=== PATIENT | female | born 1940 | race Caucasian/White ===

== ENCOUNTER 2023-12-13 22:16 | Emergency (ER) | payer MEDICARE, OTHER ==
[~2023-12-13] VITALS: Ht 162.6 cm; Wt 57.4 kg
--- OUTSIDE RECORDS SUMMARY | 2023-12-13 22:18 | XMS ---
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 [place] VISIT COUNT (12 MO.) 1 [facility] 1 [facility] TOTAL 3 NOTE: Visits indicate total known visits. ED/UCC VISIT TRACKING (12 MO.) 12/13/2023 22:17 [facility] [place] TYPE: Emergency COMPLAINT: - FALL 09/22/2023 17:52 [facility] TYPE: Emergency DIAGNOSES: - Rectal prolapse - prolapsed bowel problem - Rectal Problems 01/01/2023 09:17 [facility] ([facility]) TYPE: Emergency DIAGNOSES: - Disorientation, unspecified - Altered Mental Status - AMS, ankle swelling INPATIENT VISIT TRACKING (12 MO.) No inpatient visits to display in this time frame [email or web address]
[2023-12-13] MEDS ORDERED: ondansetron HCL 4 MG/2 ML VIAL IV ONE (22:30)
[2023-12-13] MEDS ORDERED: MORPHINE SULFATE 4 MG/ML VIAL IV ONE (22:30)
[2023-12-13 22:39] LABS: BASOPHILS 0.7 % (0-2); EOSINOPHILS 2.4 % (0-6); HEMOGLOBIN 12.9 g/dL (12.0-18.0); LYMPHOCYTES 25.7 % (24-44); MCHC 33.1 g/dl (30-36); MCV 93.6 fl (81-99); MONOCYTES 8.1 % (0-12); NEUTROPHILS 63.1 % (39-80); PLATELET COUNT 173 K/uL (140-440); RBC 4.17 M/ul (4.3-5.7); RDW 13.3 (10.5-15.0)
[2023-12-13 22:51] LABS: ALBUMIN 3.7 g/dL (3.4-5.0); ALBUMIN/GLOBULIN RATIO 1.12 (1.1-2.4); ALCOHOL, MEDICAL <3 ng/dL (<3); ALKALINE PHOSPHATASE 90 U/L (46-116); ALT (SGPT) 18 U/L (14-59); ANION GAP 11.1 (7-21); AST (SGOT) 13 U/L (15-37); BILIRUBIN, TOTAL 0.4 ng/dL (0.2-1.0); BUN/CREATININE RATIO 23.07 (6.0-28.6); CALCIUM 8.6 mg/dL (8.5-10.1); CARBON DIOXIDE 29 mmol/L (21-32); CHLORIDE 99 mmol/L (98-107); CREATININE, SERUM 0.78 mg/dL (0.55-1.02); GLOMERULAR FILTRATION RATE,EST 76 mL/min (>60); POTASSIUM 4.1 mmol/L (3.5-5.1); UREA NITROGEN 18 mg/dL (7-18)
[2023-12-13 23:11] LABS: ABO A; ANTIBODY SCREEN NEGATIVE; RH POSITIVE
[2023-12-13 23:20] LABS: BILIRUBIN, URINE NEGATIVE (negative); BLOOD/HGB, URINE NEGATIVE (Negative); KETONE, URINE NEGATIVE (Negative); LEUK ESTERASE, URINE NEGATIVE (negative); NITRITE, URINE NEGATIVE (negative)
[2023-12-13 23:35] LABS: AMPHETAMINES, URINE NEGATIVE (NEGATIVE); BARBITURATES, URINE NEGATIVE (NEGATIVE); BENZODIAZEPINE, URINE NEGATIVE (NEGATIVE); BUPRENORPHINE, URINE NEGATIVE (NEGATIVE); CANNABINOID, URINE NEGATIVE (NEGATIVE); COCAINE, URINE NEGATIVE (NEGATIVE); ECSTASY, URINE NEGATIVE (NEGATIVE); FENTANYL, URINE NEGATIVE (NEGATIVE); METHADONE, URINE NEGATIVE (NEGATIVE); OPIATES, URINE POSITIVE (NEGATIVE); OXYCODONE, URINE NEGATIVE (NEGATIVE); PHENCYCLIDINE, URINE NEGATIVE (NEGATIVE)
[2023-12-13] MEDS ORDERED: TRAMADOL HCL50 MG PO (23:42)
[2023-12-14] MEDS ORDERED: TRAMADOL HCL 50 MG HOME.PACK PO ONE (00:15)
[2023-12-14 00:55] VITALS: BP 125/53
== END 2023-12-14 00:55 | disposition home or self-care (01) ==
LOC: ED 22:16
PROVIDERS: Family Medicine
DX: S00.03XA Contusion of scalp, initial encounter (principal); S16.1XXA Strain of muscle, fascia and tendon at neck level, initial encounter; M54.50 Low back pain, unspecified; W18.39XA Other fall on same level, initial encounter; Z88.0 Allergy status to penicillin; Z88.8 Allergy status to other drugs, medicaments and biological substances; Z88.1 Allergy status to other antibiotic agents
CPT/HCPCS: 36415; 70450; 72125; 72128; 72131; 80053; 80307; 81003; 85025; 86850; 86900; 86901; 96374; 96375; 99284-25; A9270; G0480; J2270; J2405